=== PATIENT | male | born 1960 | race Caucasian/White ===

== ENCOUNTER 2017-06-08 14:17 | Emergency (ER) | payer OTHER ==
[~2017-06-08] VITALS: Ht 168.9 cm; Wt 98.6 kg
[2017-06-08 14:23] VITALS: BP 133/86
--- NOTE | 2017-06-08 14:28 | NUR ---
PT [id number], RR EVEN/UNLABORED, STEADY GAIT; PT TO LOBBY AWAITING OPEN BED.
--- NOTE | 2017-06-08 17:52 | NUR ---
patient called from lobby for mse and no answer patient is lwbs.
== END 2017-06-08 17:48 | disposition left against medical advice (07) ==
LOC: MED 14:17
DX: M79.672 Pain in left foot (principal); Z53.21 Procedure and treatment not carried out due to patient leaving prior to being seen by health care provider